=== PATIENT | female | born 1970 | race Caucasian/White ===

== ENCOUNTER 2016-09-24 21:16 | Emergency (ER) | payer OTHER ==
[~2016-09-24] VITALS: Ht 165.1 cm; Wt 55.3 kg
[~2016-09-24 21:16] MED LIST: ADVIL200 M1 PO; ALPRAZOLAM PO; CALCIUM 500 + D1 TAB PO; CEPHALEXIN500 M1 PO; CERTAGEN PO; CINNAMON PLUS1 EACH PO; CLEOCIN PO; COLACE PO; CRANBERRY300 MG PO; DARVOCET-N 1001 TAB PO; DEMEROL50 MG PO; DICLOFENAC PO; FEOSOL PO; FISH OIL 1,0001 CAP PO; FLEXERIL PO; IBUPROFEN800 MG PO; KRILL OIL 1,001 EACH PO; NAPROXEN PO; PRILOSEC20 M1 PO; PROBIOTIC & AC1 EACH PO; PROBIOTIC1 EAC3 PO; PROBIOTICS; PROPRANOLOL HCL10 MG PO; SKELAXIN PO; VICODIN 5/500 T1 TAB PO; VITAL-D RX TABL1 TAB PO; VITAMIN B; VITAMIN B-COMPL1 CA1 PO; VITAMIN C PO; VITAMIN D-3 4001 TAB PO; VOLTAREN75 MG PO; XANAX1 MG PO; ZANTAC150 MG PO; ZOLOFT PO; ZOLOFT100 MG PO; [UNRECOGNIZED DRUG - OTHER]; [UNRECOGNIZED DRUG - OTHER] RC
[2016-09-24] MEDS ORDERED: PROPRANOLOL (21:29)
[2016-09-24] MEDS ORDERED: ALPRAZOLAM (21:29)
[2016-09-24] MEDS ORDERED: ZOLOFT PO (21:29)
== END 2016-09-24 22:40 | disposition home or self-care (01) ==
LOC: SED 21:16
DX: T16.2XXA Foreign body in left ear, initial encounter (principal); F41.9 Anxiety disorder, unspecified; F17.210 Nicotine dependence, cigarettes, uncomplicated; Z88.1 Allergy status to other antibiotic agents; Z79.899 Other long term (current) drug therapy
CPT/HCPCS: 69200; 99282